=== PATIENT | female | born 1985 | race Caucasian/White ===

== ENCOUNTER → 2017-04-17 | Day surgery (SDC) | payer BC ==
[~2017-04-17] VITALS: Ht 160 cm; Wt 59.8 kg
[~2017-04-17] MED LIST: ANUSOL HC 25 M1 SUPP R; CLARITIN10 MG PO; CRYSELLE-28 TA1 EACH PO; LIDOCAINE1 EACH TOP; MELOXICAM15 MG PO; MOTRIN800 MG PO; PERCOCET 5-3251 EACH PO; PRENATAL 1+1)(P1 TAB PO; PROTONIX40 MG PO; RIZATRIPTAN10 M1 PO
== END | disposition disaster alternative care site (69) ==
LOC: GPOC 04-13 14:00 → GEND 09:52 → GPOC 09:52
PROC: 0DB68ZX Excision of Stomach, Via Natural or Artificial Opening Endoscopic, Diagnostic (ICD-10-PCS; principal; 2017-04-17)
DX: K31.7 Polyp of stomach and duodenum (principal); K21.9 Gastro-esophageal reflux disease without esophagitis; Z98.1 Arthrodesis status; Z98.890 Other specified postprocedural states; Z79.899 Other long term (current) drug therapy
CPT/HCPCS: J2001; J7030